=== PATIENT | male | born 2000 | race Caucasian/White ===

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

== ENCOUNTER 2019-03-01 15:28 | Emergency (ER) | payer MEDICAID ==
[~2019-03-01] VITALS: Ht 170.2 cm; Wt 68.2 kg
[~2019-03-01 15:28] MED LIST changes: -TETanus/Pertussis (Acell)/Diphther VAC/PF (Tdap-Adult) 0.5ml syringe IM ONE
[2019-03-01] MEDS ORDERED: PENI250T2 PO (15:37)
[2019-03-01] MEDS ORDERED: NAPR-56 PO (15:37)
[2019-03-01 15:39] VITALS: BP 112/73
== END 2019-03-01 16:00 | disposition home or self-care (01) ==
LOC: ER 15:29
DX: K01.1 Impacted teeth (principal); F15.90 Other stimulant use, unspecified, uncomplicated; F14.90 Cocaine use, unspecified, uncomplicated; F11.90 Opioid use, unspecified, uncomplicated; F10.99 Alcohol use, unspecified with unspecified alcohol-induced disorder; Z56.0 Unemployment, unspecified; Z88.8 Allergy status to other drugs, medicaments and biological substances; Z79.899 Other long term (current) drug therapy; Y90.9 Presence of alcohol in blood, level not specified
CPT/HCPCS: 99283

== ENCOUNTER 2022-12-27 23:49 | Emergency (ER) | payer MEDICAID ==
[~2022-12-27] VITALS: Ht 170.2 cm; Wt 68.2 kg
[~2022-12-27 23:49] MED LIST changes: +OMEP20TA43 PO; -OMEP20TA5 PO
[2022-12-28] VITALS: BP 133/89
[2022-12-28] MEDS ORDERED: ibuprofen tablet 400 MG TABLET PO ONE (00:50)
== END 2022-12-28 01:46 | disposition home or self-care (01) ==
LOC: ER 23:50
DX: M25.572 Pain in left ankle and joints of left foot (principal); R22.42 Localized swelling, mass and lump, left lower limb; F14.90 Cocaine use, unspecified, uncomplicated; F11.90 Opioid use, unspecified, uncomplicated; F15.90 Other stimulant use, unspecified, uncomplicated; Z56.0 Unemployment, unspecified; Z88.8 Allergy status to other drugs, medicaments and biological substances; Z79.899 Other long term (current) drug therapy
CPT/HCPCS: 29515; 73610; 99283; L1930; A6449

== ENCOUNTER 2024-01-10 04:21 | Emergency (ER) | payer MEDICAID ==
[~2024-01-10] VITALS: Ht 170.2 cm; Wt 59.1 kg
[2024-01-10] MEDS ORDERED: AMOX-117 PO (05:47)
[2024-01-10] MEDS: amox tr/potassium clavulanate 875/125mg TAB PO ONE (05:56)
[2024-01-10 06:01] VITALS: BP 130/76; PULSE 99; RESP 16; TEMP 98.2; O2SAT 99
== END 2024-01-10 06:04 | disposition home or self-care (01) ==
LOC: ER 04:21
DX: S00.01XA Abrasion of scalp, initial encounter (principal); S61.452A Open bite of left hand, initial encounter; F17.200 Nicotine dependence, unspecified, uncomplicated; F15.90 Other stimulant use, unspecified, uncomplicated; F14.90 Cocaine use, unspecified, uncomplicated; F11.90 Opioid use, unspecified, uncomplicated; Z79.899 Other long term (current) drug therapy; Z56.0 Unemployment, unspecified; Z72.89 Other problems related to lifestyle; Z88.8 Allergy status to other drugs, medicaments and biological substances; Y08.89XA Assault by other specified means, initial encounter; Y93.89 Activity, other specified; Y92.89 Other specified places as the place of occurrence of the external cause; Y99.8 Other external cause status
CPT/HCPCS: 99283

== ENCOUNTER 2024-06-09 20:16 | Emergency (ER) | payer MEDICAID ==
[~2024-06-09] VITALS: Ht 170.2 cm; Wt 66.8 kg
[2024-06-09] MEDS ORDERED: CLOT15CR73 TOP (21:55)
[2024-06-09] MEDS ORDERED: DIF150T PO (21:56)
[2024-06-09 22:03] VITALS: BP 120/68; PULSE 105; RESP 20; TEMP 97.6; O2SAT 98
== END 2024-06-09 22:07 | disposition home or self-care (01) ==
LOC: ER 20:16
DX: B35.3 Tinea pedis (principal); F12.90 Cannabis use, unspecified, uncomplicated; F15.90 Other stimulant use, unspecified, uncomplicated; F11.90 Opioid use, unspecified, uncomplicated; Z88.8 Allergy status to other drugs, medicaments and biological substances
CPT/HCPCS: 99283